=== PATIENT | male | born 1985 | race African-American/Black ===

== ENCOUNTER 2017-10-26 19:31 | Observation (INO) | payer OTHER ==
--- NOTE | 2017-10-26 19:45 | PDOC ---
History of Present Illness - General Chief Complaint: Blood Sugar Problem Stated Complaint: HYPERGLYCEMIA Time Seen by Provider: 10/26/17 19:44 History Source: Patient - History of Present Illness Initial Comments: 10/26/17 20:25 31-year-old male with history of insulin-dependent diabetes on insulin pump, hypothyroidism on Synthroid complaining of nausea vomiting this a.m. Patient reports that his last BGM was 260. History of DKA last admitted May 2017 at [facility]. patient denies Abdominal pain, fever/chills, URI symptoms, 10/26/17 20:25 Past History - Past Medical History Allergies/Adverse Reactions: Allergies Allergy/AdvReac Type Severity Reaction Status Date / Time No Known Allergies Allergy Verified 10/26/17 20:01 Home Medications: Ambulatory Orders Insulin Pump/Infus. Set/Meter [Accu-Chek Combo System] 1 each MC 10/26/17 Levothyroxine [Synthroid -] 37 mcg PO DAILY 10/26/17 Review of Systems - Review of Systems Able to Perform ROS?: Yes Is the patient limited Spanish proficient: No Constitutional: Yes: Weakness. No: Symptoms Reported, See HPI, Chills, Diaphoresis, Fever, Loss of Appetite, Malaise, Night Sweats, Weight Stable, Unintentional Wgt. Loss, Unexplained wgt Loss, Other ABD/GI: Yes: Nausea, Vomiting. No: Symptoms Reported, See HPI, Abdominal Distended, Abd. Pain w/ defecation, Blood Streaked Bowels, Constipated, Diarrhea , Difficulty Swallowing, Poor Appetite, Poor Fluid Intake, Rectal Bleeding, Indigestion, Abdominal cramping, Tarry Stools, Other : No: Symptoms Reported, See HPI, Burning, Dysuria, Discharge, Frequency, Flank Pain, Hematuria, Incontinence, Pain, Urgency, Testicular Mass, Testicular Swelling, Lesions, Testicular Pain, Other *Physical Exam - Vital Signs 10/26/17 20:27 Last Vital Signs Temp Pulse Resp BP Pulse Ox 98.8 F 102 H 19 155/94 98 10/26/17 19:56 10/26/17 19:56 10/26/17 19:56 10/26/17 19:56 10/26/17 19:56 - Physical Exam General Appearance: Yes: Mild Distress Respiratory/Chest: positive: Lungs Clear, Normal Breath Sounds Gastrointestinal/Abdominal: positive: Normal Bowel Sounds, Soft. negative: Tender Extremity: positive: Normal Capillary Refill, Normal Inspection, Normal Range of Motion Integumentary: positive: Dry, Other (dry lips) Neurologic: positive: Fully Oriented, Alert, Normal Mood/Affect ED Treatment Course - LABORATORY CBC & Chemistry Diagram: 10/26/17 19:59 10/27/17 00:40 Medical Decision Making - Medical Decision Making 10/26/17 20:29 patient tolerated PO food. no vomiting. 10/27/17 01:53 Patient vomited large amount on bilious vomitus. will obs for intractable vomiting. 10/27/17 02:34 patient signed out to Roxana SUTTON/ Dr. Quintana. patient to be placed on observation *DC/Admit/Observation/Transfer Diagnosis at time of Disposition: Hyperglycemia due to type 1 diabetes mellitus Intractable vomiting with nausea Qualifiers: Vomiting type: cyclical vomiting Qualified Code(s): G43.A1 - Cyclical vomiting , intractable - Discharge Dispostion Condition at time of disposition: Fair Decision to Admit order: Yes - Referrals - Patient Instructions - Post Discharge Activity
[2017-10-26] MEDS ORDERED: SODIUM CHLORIDE 1,000 ML IV STA ×2 (19:51→21:38)
[2017-10-26] MEDS ORDERED: ONDANSETRON 4 MG/2 ML VIAL IVPUSH ONE (19:53)
[2017-10-26 20:25] LABS: VENOUS PC02 46.3 mmHg (38-52); VENOUS PH 7.38 (7.32-7.42); VENOUS PO2 33.5 mmHg (28-48)
[2017-10-26 20:41] LABS: BASO % 0.4 % (0-2.0); HEMATOCRIT 41.1 % (35.4-49); HEMOGLOBIN 13.5 GM/dL (11.7-16.9); LYMPH % 8.8 % (8-40); MCH 27.3 pg (25.7-33.7); MCHC 32.7 g/dl (32.0-35.9); MEAN CELL VOLUME 83.5 fl (80-96); MEAN PLT VOLUME 8.3 fl (7.5-11.1); MONO % 2.3 % (3.8-10.2); NEUT % 88.5 % (42.8-82.8); PLATELET COUNT 249 K/MM3 (134-434); RBC 4.93 M/mm3 (4.00-5.60); RDW 13.5 % (11.9-15.9); WHITE BLOOD COUNT 5.1 K/mm3 (4.0-10.0)
[2017-10-26 20:43] LABS: INR 1.12 (0.82-1.09); PROTHROMBIN TIME (PATIENT) 12.6 SEC (9.7-13.0)
[2017-10-26 20:46] LABS: ACTIVATED PTT 33.4 SECONDS (26.9-34.4)
[2017-10-26 20:52] LABS: ALBUMIN 4.6 g/dl (3.4-5.0); ANION GAP 8 (8-16); BILIRUBIN,TOTAL 0.5 mg/dL (0.2-1.0); BLOOD UREA NITROGEN 15 mg/dL (7-18); CALCIUM 9.4 mg/dL (8.5-10.1); CHLORIDE 100 mmol/L (98-107); CO2 28 mmol/L (21-32); CREATININE 1.2 mg/dL (0.7-1.3); GLUCOSE,RANDOM 232 mg/dL (74-106); SGOT/AST 24 U/L (15-37); SGPT/ALT 28 U/L (12-78); SODIUM 136 mmol/L (136-145); TOT PROT 7.7 g/dl (6.4-8.2)
[2017-10-26 20:53] LABS: ALK PHOS 72 U/L (45-117)
[2017-10-26] MEDS: SODIUM CHLORIDE 1,000 ML IV SCH (21:28)
[2017-10-26 23:21] LABS: URINE APPEARANCE CLEAR; URINE BILIRUBIN NEGATIVE (<2.0 mg/dL); URINE BLOOD 2+ (NEGATIVE); URINE COLOR LTYELLOW; URINE GLUCOSE (UA) 3+ (NEGATIVE); URINE KETONE 2+ (NEGATIVE); URINE LEUK ESTERASE NEGATIVE (NEGATIVE); URINE NITRITE NEGATIVE (NEGATIVE); URINE UROBILINOGEN NEGATIVE mg/dL (0.2-1.0)
[2017-10-26 23:22] LABS: URINE PROTEIN 2+ (NEGATIVE)
[2017-10-26 23:23] LABS: URINE MUCUS RARE
[2017-10-27] MEDS ORDERED: METOCLOPRAMIDE HCL INJECTION 10 MG/2 ML VIAL ONE (01:39)
[2017-10-27] MEDS ORDERED: METOCLOPRAMIDE HCL INJECTION 10 MG/2 ML VIAL IVPB ONE (02:11)
--- NOTE | 2017-10-27 02:43 | HP ---
CHIEF COMPLAINT: Intractable vomiting PCP: Dr. Morales HISTORY OF PRESENT ILLNESS: 31 yo man with pmh of IDDM1, hypothroidism who presents with one day of persistent N/V and crampy abdominal pain. Pt states he was in his USOH until yesterday evening, when he noted progressive onset of crampy abdominal pain, with no radiation or exacerbating/relieving symptoms, nausea and 3 bouts of NBNB vomiting, yellow in color with no blood or food particles noted. Pt denies any other symptoms at the time. Pt states that symptoms continued today, with intermittent crampy abdominal pain and three more bouts of NBNB vomiting. Pt endorses no PO intake with decreased appetite and persistent nausea. Pt denies f /c, diarrhea, constipation, cough, CP, SOB, melena, hematochezia, rashes. He denies any sick contacts or dietary changes. Pt recently admitted for DKA last month at [facility], [place]. Pt follows with machine precision etcher and podiatry but does not know their names. Pt was started on insulin pump 2 years ago and endorses good compliance. ER course was notable for: (1)Reglan, Zofran x1 (2)BGM 298 (3)UA 3+ glucose, 2+ ketone, serum acetone + Recent Travel: None PAST MEDICAL HISTORY: IDDM Hypothyroidism PAST SURGICAL HISTORY: Thyroidectomy Social History: Smoking: Denies Alcohol: Denies Drugs: Denies marijuana, IVDU Family History: Non-contributory Allergies No Known Allergies Allergy (Verified 10/26/17 20:01) HOME MEDICATIONS: Home Medications Medication Instructions Recorded Insulin Pump/Infus. Set/Meter 1 each MC 10/26/17 [Accu-Chek Combo System] Levothyroxine [Synthroid -] 37 mcg PO DAILY 10/26/17 REVIEW OF SYSTEMS CONSTITUTIONAL: Absent: fever, chills, diaphoresis, generalized weakness, malaise, loss of appetite, weight change HEENT: Absent: rhinorrhea, nasal congestion, throat pain, throat swelling, difficulty swallowing, mouth swelling, ear pain, eye pain, visual changes CARDIOVASCULAR: Absent: chest pain, syncope, palpitations, irregular heart rate, lightheadedness , peripheral edema RESPIRATORY: Absent: cough, shortness of breath, dyspnea with exertion, orthopnea, wheezing, stridor, hemoptysis GASTROINTESTINAL: +abdominal pain, vomiting/nausea Absent: abdominal distension, diarrhea, constipation, melena, hematochezia GENITOURINARY: Absent: dysuria, frequency, urgency, hesitancy, hematuria, flank pain, genital pain MUSCULOSKELETAL: Absent: myalgia, arthralgia, joint swelling, back pain, neck pain SKIN: Absent: rash, itching, pallor HEMATOLOGIC/IMMUNOLOGIC: Absent: easy bleeding, easy bruising, lymphadenopathy, frequent infections ENDOCRINE: Absent: unexplained weight gain, unexplained weight loss, heat intolerance, cold intolerance NEUROLOGIC: Absent: headache, focal weakness or paresthesias, dizziness, unsteady gait, seizure, mental status changes, bladder or bowel incontinence PSYCHIATRIC: Absent: anxiety, depression, suicidal or homicidal ideation, hallucinations. PHYSICAL EXAMINATION Vital Signs - 24 hr 10/26/17 19:56 Temperature 98.8 F Pulse Rate 102 H Respiratory 19 Rate Blood Pressure 155/94 O2 Sat by Pulse 98 Oximetry (%) GENERAL: Young man, Awake, alert, and fully oriented, in no acute distress HEAD: Normal with no signs of trauma. EYES: Pupils equal, round and reactive to light, extraocular movements intact, sclera anicteric, conjunctiva clear. No lid lag. EARS, NOSE, THROAT: Ears normal, nares patent, oropharynx clear without exudates. Moist mucous membranes. NECK: Lateral midline throidectomy scar noted. Normal range of motion, supple without lymphadenopathy, JVD, or masses. LUNGS: Breath sounds equal, clear to auscultation bilaterally. No wheezes, and no crackles. No accessory muscle use. HEART: Tachy, 3/6 blowing systolic murmur best appreciated at LLSB. otherwise, Regular rate and rhythm, normal S1 and S2 , no rub or gallop. ABDOMEN: Soft, nontender, not distended, normoactive bowel sounds, no guarding, no rebound, no masses. No hepatomegaly or splenomegaly. MUSCULOSKELETAL: Normal range of motion at all joints. No bony deformities or tenderness. No CVA tenderness. UPPER EXTREMITIES: 2+ pulses, warm, well-perfused. No cyanosis. No clubbing. No peripheral edema. LOWER EXTREMITIES: 2+ pulses, warm, well-perfused. No calf tenderness. No peripheral edema. NEUROLOGICAL: Cranial nerves II-XII intact. Normal speech. Gait not evaluated. PSYCHIATRIC: Cooperative. Poor eye contact. Appropriate mood and affect. SKIN: Warm, dry, normal turgor, no rashes or lesions noted, normal capillary refill. Laboratory Results - last 24 hr CBC, BMP 10/26/17 19:59 10/27/17 00:40 10/26/17 10/26/17 10/26/17 19:59 19:59 19:59 WBC 5.1 RBC 4.93 Hgb 13.5 Hct 41.1 MCV 83.5 MCH 27.3 MCHC 32.7 RDW 13.5 Plt Count 249 MPV 8.3 Absolute Neuts (auto) 4.5 Neutrophils % 88.5 H Lymphocytes % 8.8 Monocytes % 2.3 L Eosinophils % 0.0 Basophils % 0.4 Nucleated RBC % 0 PT with INR 12.60 INR 1.12 PTT (Actin FS) 33.4 VBG pH POC VBG pCO2 POC VBG pO2 Mixed VBG HCO3 Sodium 136 Potassium 4.0 Chloride 100 Carbon Dioxide 28 Anion Gap 8 BUN 15 Creatinine 1.2 Creat Clearance w eGFR > 60 Random Glucose 232 H Calcium 9.4 Total Bilirubin 0.5 AST 24 ALT 28 Alkaline Phosphatase 72 Total Protein 7.7 Albumin 4.6 Urine Color Urine Appearance Urine pH Ur Specific Sturgeon Urine Protein Urine Glucose (UA) Urine Ketones Urine Blood Urine Nitrite Urine Bilirubin Urine Urobilinogen Ur Leukocyte Esterase Urine WBC (Auto) Urine RBC (Auto) Urine Mucus Acetone, Qual 10/26/17 10/26/17 10/26/17 19:59 19:59 23:07 WBC RBC Hgb Hct MCV MCH MCHC RDW Plt Count MPV Absolute Neuts (auto) Neutrophils % Lymphocytes % Monocytes % Eosinophils % Basophils % Nucleated RBC % PT with INR INR PTT (Actin FS) VBG pH 7.38 POC VBG pCO2 46.3 POC VBG pO2 33.5 Mixed VBG HCO3 27.0 H Sodium Potassium Chloride Carbon Dioxide Anion Gap BUN Creatinine Creat Clearance w eGFR Random Glucose Calcium Total Bilirubin AST ALT Alkaline Phosphatase Total Protein Albumin Urine Color Ltyellow Urine Appearance Clear Urine pH 6.0 Ur Specific Sturgeon 1.028 Urine Protein 2+ H Urine Glucose (UA) 3+ H Urine Ketones 2+ H Urine Blood 2+ H Urine Nitrite Negative Urine Bilirubin Negative Urine Urobilinogen Negative Ur Leukocyte Esterase Negative Urine WBC (Auto) 2 Urine RBC (Auto) 40 Urine Mucus Rare Acetone, Qual Positive,trace 06/05/18 00:40 WBC RBC Hgb Hct MCV MCH MCHC RDW Plt Count MPV Absolute Neuts (auto) Neutrophils % Lymphocytes % Monocytes % Eosinophils % Basophils % Nucleated RBC % PT with INR INR PTT (Actin FS) VBG pH POC VBG pCO2 POC VBG pO2 Mixed VBG HCO3 Sodium Potassium Chloride Carbon Dioxide Anion Gap BUN Creatinine Creat Clearance w eGFR Random Glucose 298 H D Calcium Total Bilirubin AST ALT Alkaline Phosphatase Total Protein Albumin Urine Color Urine Appearance Urine pH Ur Specific Sturgeon Urine Protein Urine Glucose (UA) Urine Ketones Urine Blood Urine Nitrite Urine Bilirubin Urine Urobilinogen Ur Leukocyte Esterase Urine WBC (Auto) Urine RBC (Auto) Urine Mucus Acetone, Qual No micro No EKG, CXR ASSESSMENT/PLAN: 31 yo man with pmh of IDDM1, hypothroidism who presents with one day of persistent N/V and crampy abdominal pain. Normal physical exam. Labs notable for elevated BGM 298, + serum acetone. UA with 3+ glucose, 2+ ketones, 2+ blood/ protein. #Intractable Vomiting - improved with reglan, zofran - Zofran 4mg IV PRN q6h - IVFs - advance diet as tolerated #IDDM1 - +serum acetone; +glucosuria, ketonuria; no evidence acidosis, normal A- gap - ISS -BGM q4h - Hgb A1c - F/u as outpt for further management with machine precision etcher #Proteinuria/hematuria - as above - Repeat UA in AM #Hypothyroidism - C/w home synthroid - TSH in AM PPX Famotidine FEN NS 150cc Daily lytes Diabetic diet as tolerated Plan discussed with Dr. Mariano Christian, PGY1 Hospitalist Screening - Colonoscopy Questionnaire Colonoscopy Questionnaire: Colonoscopy Questionnaire
[2017-10-27] MEDS ORDERED: ONDANSETRON 4 MG/2 ML VIAL IVPUSH PRN (03:07)
--- NOTE | 2017-10-27 04:52 | PN ---
Teaching Attending Note Name of Resident: Mayito Christian ATTENDING PHYSICIAN STATEMENT I saw and evaluated the patient. I reviewed the resident's note and discussed the case with the resident. I agree with the resident's findings and plan as documented. SUBJECTIVE: Patient is a 31 year old man with pmh of IDDM, thyroidectomy with hypothroidism who presents with one day of persistent nausea, vomiting and crampy abdominal pain. Yesterday he noted progressive onset of crampy abdominal pain, with no radiation or exacerbating/relieving symptoms, nausea and 3 bouts of vomiting - yellow material with no blood or food particles noted. No loose BM. He has had poor oral intake and was admitted for DKA last month at [facility]. Has been on insulin pump for 2 years but does not remember the name of his field services director or biometrician. OBJECTIVE: Somnolent but readily arousable. Vital Signs Period Temp Pulse Resp BP Sys/Archibald Pulse Ox Last 24 Hr 98.8 F 102-106 18-19 142-155/85-94 97-98 HEENT: No Jaundice, eye redness or discharge, PERRLA, EOMI. Normocephalic, atraumatic. External ears are normal and hearing is grossly intact. No nasal discharge. Neck: Supple, nontender. No palpable adenopathy or thyromegaly. No JVD Chest: Good effort. Clear to auscultation and percussion. Heart: Regular. No S3, rub or murmur Abdomen: Not distended, soft, nontender and no HSM. No rebound or guarding. Normoactive bowel sounds. Ext: Peripheral pulses intact. No leg edema. Skin: Warm and dry. No petechiae, rash or ecchymosis. Neuro: Alert. Oriented x3. CN 2-12 grossly intact. Sensation grossly intact in all four extremities and DTR are symmetric. Current Medications Generic Name Dose Route Start Last Admin Trade Name Freq PRN Reason Stop Dose Admin Sodium Chloride 1,000 mls @ 150 mls/hr 10/26/17 21:00 10/26/17 21:28 Normal Saline - IV 150 mls/hr ASDIR ILIANA Administration Insulin Aspart 1 vial 10/27/17 07:00 Novolog Vial Sliding Scale - SQ ACHS ILIANA Protocol Ondansetron HCl 4 mg 10/27/17 03:07 Zofran Injection IVPUSH Q6H PRN NAUSEA Home Medications Medication Instructions Recorded Insulin Pump/Infus. Set/Meter 1 each MC 10/26/17 [Accu-Chek Combo System] Levothyroxine [Synthroid -] 37 mcg PO DAILY 10/26/17 Abnormal Lab Results 10/26/17 10/26/17 10/26/17 19:59 19:59 19:59 Neutrophils % 88.5 H Monocytes % 2.3 L Mixed VBG HCO3 27.0 H Random Glucose 232 H Urine Protein Urine Glucose (UA) Urine Ketones Urine Blood 10/26/17 10/27/17 23:07 00:40 Neutrophils % Monocytes % Mixed VBG HCO3 Random Glucose 298 H D Urine Protein 2+ H Urine Glucose (UA) 3+ H Urine Ketones 2+ H Urine Blood 2+ H ASSESSMENT AND PLAN: 1. Intractable nausea and vomiting - Improved in the ER after Zofran and IV fluids. Diabetic gastropathy is the likely culprit, but will get urine toxicology for drug screen. Ciontinue IV NS and zofran PRN. Consult GI. 2. Uncontrolled DM - Continue sliding scale insulin and check his insulin pump to ensure that it is working well. No evidence of DKA or associated infection. Needs comprehensive DM patient education - he is on insulin pump - the fact that he does not know the name of his field services director is concerning. Stress eye care and foot care. Consult field services director. Proteinuria and hematuria may signal early diabetic nephropathy - needs further nephrologic work up and repeat urinalysis. Consult nephrology. His BP is suboptimal - moreso for a diabetic patient. Begin and an angiotensin receptor janeth if hypertension persists. 3. Hypothyroidism - Follow up TFT and continue synthroid. 4. DVT prophylaxis - Heparin 5000u sq tid and early ambulation. 5. Advance directives - Full code
[2017-10-27] MEDS ORDERED: INSULIN (NOVOLOG) ASPART 100 UNITS/ML 10ML VIAL SQ ONE (06:24)
[2017-10-27] MEDS ORDERED: FAMOTIDINE 20 MG/50 ML IVPB 20 MG/50 ML MG IVPB ONE (06:24)
[2017-10-27] MEDS: INSULIN SLIDING SCALE (NOVOLOG) 1 VIAL SQ SCH ×2 (06:40→11:59)
[2017-10-27] MEDS ORDERED: PT OWN MED DRAWER 7, Y5N ONE (07:18)
[2017-10-27] MEDS: SODIUM CHLORIDE 1,000 ML IV SCH (07:41)
[2017-10-27 08:00] VITALS: BMI 21.7
[2017-10-27 09:17] LABS: ANION GAP 12 (8-16); BLOOD UREA NITROGEN 21 mg/dL (7-18); CALCIUM 8.2 mg/dL (8.5-10.1); CHLORIDE 104 mmol/L (98-107); CO2 23 mmol/L (21-32); CREATININE 1.5 mg/dL (0.7-1.3); GLUCOSE,RANDOM 293 mg/dL (74-106); POTASSIUM 3.7 mmol/L (3.5-5.1); SODIUM 139 mmol/L (136-145)
[2017-10-27 09:58] LABS: MAGNESIUM 1.6 mg/dL (1.8-2.4); PHOSPHOROUS 2.8 mg/dL (2.5-4.9)
[2017-10-27] MEDS ORDERED: INSULIN (LEVEMIR) 100 UNITS/ML UNITS SQ ONE ×2 (11:07)
[2017-10-27] MEDS ORDERED: MAGNESIUM OXIDE 400 MG TABLET (FP) PO ONE (11:08)
--- NOTE | 2017-10-27 11:36 | CON.GI ---
Consult Consult Specialty:: GI: Dr. Mcguire for Dr. De La Garza Referred by:: Hospitalist Service Reason for Consultation:: Nausea, vomiting - History of Present Illness Chief Complaint: Nausea and vomiting History of Present Illness: 31M admitted through [facility] ER for evaluation of nausea and vomiting. He states that he was in his usual state of health up until yesterday when symptoms began. He denied associated abdominal pain, fevers/chills, diarrhea, recent change in diet, sick contacts with similar complaints, rectal bleeding, melena and overall feels better today. He had 1 alcoholic beverage on Thursday and denies frequent alcohol consumption. He was noted hyperglycemic on admission with blood glucose 232--->298. He states that his blood sugar has been around 300 of late and has been seeing his corrugated fastener driver to attain better control. he also admits to not being adherent to a diabetic diet as much as he should. He has tolerated full liquids today. He has an appointment this month with his market sales manager Dr. Gaurav Hollis on [facility] and states having seen him earlier in the year as well. - History Source History Provided By: Patient, Medical Record Limitations to Obtaining History: No Limitations - Past Medical History Endocrine: Yes: Diabetes Mellitus (DM I since age 10), Hyperthyroidism (s/p thyroidectomy, now with surgical hypothyroidism) - Past Surgical History Additional Surgical History: Thyroidectomy, insulin pump placement - Alcohol/Substance Use Hx Alcohol Use: Yes (described as occasional, last 6/3: 1 drink) History of Substance Use: reports: None - Smoking History Smoking history: Never smoked Have you smoked in the past 12 months: No - Social History Usual Living Arrangement: Alone ADL: Independent Occupation: Works at [employer] in [facility] Place of : [facility] History of Recent Travel: No Home Medications - Allergies Allergies/Adverse Reactions: Allergies Allergy/AdvReac Type Severity Reaction Status Date / Time No Known Allergies Allergy Verified 10/26/17 20:01 - Home Medications Home Medications: Ambulatory Orders Insulin Pump/Infus. Set/Meter [Accu-Chek Combo System] 1 each ACHS 10/26/17 Levothyroxine [Synthroid -] 37 mcg PO DAILY 10/26/17 Family Disease History - Family Disease History Family Disease History: Other: Father (Alive: healthy), Mother (Alive: healthy) , Brother (1, healthy), Sister (2, healthy), Son (none), Daughter (1, healthy) Other Family History: No family history of colorectal cancer or other GI malignancy Review of Systems - Review of Systems Constitutional: denies: Chills, Fever, Unintentional Wgt. Loss Cardiovascular: denies: Chest Pain Respiratory: denies: Cough, SOB Gastrointestinal: reports: Nausea, Vomiting. denies: Abdominal Pain, Bloating, Constipation, Diarrhea, Melena, Rectal Bleeding, Vomiting Blood Physical Exam-GI Vital Signs: Vital Signs Temperature 98.6 F 10/27/17 08:00 Pulse Rate 98 H 10/27/17 08:00 Respiratory Rate 18 10/27/17 08:00 Blood Pressure 143/74 10/27/17 08:00 O2 Sat by Pulse Oximetry (%) 97 10/27/17 05:35 Constitutional: Yes: Calm Eyes: No: Sclera Icterus Cardiovascular: Yes: Regular Rate and Rhythm. No: Murmur Respiratory: Yes: CTA Bilaterally Gastrointestinal Inspection: Yes: Other (Insulin pump in place in mid abdomen) ...Auscultate: Yes: Normoactive Bowel Sounds ...Palpate: No: Hepatomegaly, Splenomegaly, Tenderness ...Percussion: No: Tympanitic Edema: No (No LE edema) Neurological: Yes: Alert, Oriented Labs: CBC, BMP 10/26/17 19:59 10/27/17 08:19 INR, PTT INR 1.12 (0.82-1.09) 10/26/17 19:59 Hepatic Panel Total Bilirubin 0.5 mg/dL (0.2-1.0) 10/26/17 19:59 AST 24 U/L (15-37) 10/26/17 19:59 ALT 28 U/L (12-78) 10/26/17 19:59 Alkaline Phosphatase 72 U/L (45-117) 10/26/17 19:59 Albumin 4.6 g/dl (3.4-5.0) 10/26/17 19:59 Laboratory Tests 10/27/17 08:19 TSH 0.75 Problem List - Problems (1) Nausea & vomiting Assessment/Plan: Suspect secondary to hyperglycemia Tolerating full liquids currently Advise: IV hydration Glycemic control. Explained to Mr. Chen that blood glucose over 250 can lead to GI derangements of the intestinal tract such as diabetic gastroparesis Protonix 40mg once daily for 5 days Replete lytes Would change zofran to prn regalan. Would avoid as a assisted treatment. If symptoms persist, would consider EGD, otherwise he can follow-up with his market sales manager Dr. Gaurav Hollis when acute issues are resolved Code(s): R11.2 - NAUSEA WITH VOMITING, UNSPECIFIED
[2017-10-27] MEDS ORDERED: METOCLOPRAMIDE HCL INJECTION 10 MG/2 ML VIAL IVPB PRN (11:48)
--- NOTE | 2017-10-27 12:29 | CONSULT ---
Consult Consult Specialty:: Endocrinology Referred by:: Gamaliel Alarcon MD Reason for Consultation:: Hyperglycemia - History of Present Illness Chief Complaint: Nausea History of Present Illness: This is a 31 yo man h/o T1DM for last 21 years, hypothroidism who presented with one day of persistent N/V and crampy abdominal pain. Pt states he was in his USOH until yesterday evening, when he noted progressive onset of crampy abdominal pain, with no radiation or exacerbating/relieving symptoms, nausea and 3 bouts of NBNB vomiting, yellow in color with no blood or food particles noted. Pt denies any other symptoms at the time. Pt denies any diarrhea, constipation, Pt recently admitted for DKA last month at [facility], [place]. Denies any hospitalization for hypoglycemia. Pt follows with staff sonographer and podiatry but does not know their names. Pt was started on insulin pump 2 years ago and endorses good compliance. Admission blood sugar was 298. FS at home 150 to 200 and last A1c 8.7 as per pt. Denies any visual symptoms. No paresthesia. Saw Ophthalmology last in August. Pt currently off Insulin pump. Pump setting reviewed: Basal rate: 12 MN 1.1 3 AM 1.15 8AM 1.25 Carb Ratio 1:10, and Sensitivity 1:40 - History Source History Provided By: Patient, Medical Record - Past Medical History Endocrine: Yes: Diabetes Mellitus (DM I since age 10), Hyperthyroidism (s/p thyroidectomy, now with surgical hypothyroidism) - Past Surgical History Additional Surgical History: Thyroidectomy, insulin pump placement - Alcohol/Substance Use Hx Alcohol Use: Yes (described as occasional, last 6/3: 1 drink) History of Substance Use: reports: None - Smoking History Smoking history: Never smoked Have you smoked in the past 12 months: No - Social History Usual Living Arrangement: Alone ADL: Independent Occupation: Works at [employer] in [facility] History of Recent Travel: No Home Medications - Allergies Allergies/Adverse Reactions: Allergies Allergy/AdvReac Type Severity Reaction Status Date / Time No Known Allergies Allergy Verified 10/26/17 20:01 - Home Medications Home Medications: Ambulatory Orders Insulin Pump/Infus. Set/Meter [Accu-Chek Combo System] 1 each ACHS 10/26/17 Levothyroxine [Synthroid -] 37 mcg PO DAILY 10/26/17 Family Disease History - Family Disease History Family Disease History: Diabetes: Grandparent, Other: Father (Alive: healthy), Mother (Alive: healthy), Brother (1, healthy), Sister (2, healthy), Son (none), Daughter (1, healthy) Other Family History: No family history of colorectal cancer or other GI malignancy Review of Systems - Review of Systems Constitutional: reports: No Symptoms Eyes: reports: No Symptoms HENT: reports: No Symptoms Neck: reports: No Symptoms Cardiovascular: reports: No Symptoms Respiratory: reports: No Symptoms Gastrointestinal: reports: Nausea Genitourinary: reports: No Symptoms Musculoskeletal: reports: No Symptoms Integumentary: reports: No Symptoms Neurological: reports: No Symptoms Endocrine: reports: No Symptoms Hematology/Lymphatic: reports: No Symptoms Physical Exam Vital Signs: Vital Signs Temperature 98.5 F 10/27/17 12:00 Pulse Rate 102 H 10/27/17 12:00 Respiratory Rate 18 10/27/17 12:00 Blood Pressure 150/78 10/27/17 12:00 O2 Sat by Pulse Oximetry (%) 97 10/27/17 05:35 Constitutional: Yes: No Distress, Calm Eyes: Yes: Conjunctiva Clear, EOM Intact HENT: Yes: Atraumatic, Normocephalic Neck: Yes: Supple, Trachea Midline Cardiovascular: Yes: Regular Rate and Rhythm Respiratory: Yes: Regular, CTA Bilaterally Gastrointestinal: Yes: Normal Bowel Sounds, Soft Musculoskeletal: Yes: WNL Extremities: Yes: WNL Edema: No Neurological: Yes: Alert, Oriented Labs: CBC, BMP 10/26/17 19:59 10/27/17 08:19 Problem List - Problems (1) Hyperglycemia due to type 1 diabetes mellitus Code(s): E10.65 - TYPE 1 DIABETES MELLITUS WITH HYPERGLYCEMIA (2) Nausea & vomiting Code(s): R11.2 - NAUSEA WITH VOMITING, UNSPECIFIED Assessment/Plan AP: T1DM with Hyperglycemia Nausea, vomiting Hypothyroidism Pump setting reviewed: Basal rate: 12 MN 1.1, 3 AM 1.15, 8AM 1.25, Carb Ratio 1:10, and Sensitivity 1:40 Levemir 15 units daily Novolog SS coverage IV hydration Monitor lytes and renal function Replace lytes as necessary Will F/u
[2017-10-27 15:10] VITALS: BP 155/81; PULSE 93; TEMP 98.7
[2017-10-27] MEDS ORDERED: SODIUM CHLORIDE 500 ML IV STA (16:19)
[2017-10-27] MEDS ORDERED: INSULIN SLIDING SCALE (NOVOLOG) 1 VIAL SQ SCH (16:30)
--- NOTE | 2017-10-27 17:15 | PN ---
Teaching Attending Note Name of Resident: Gamaliel Alarcon ATTENDING PHYSICIAN STATEMENT I saw and evaluated the patient. I reviewed the resident's note and discussed the case with the resident. I agree with the resident's findings and plan as documented. SUBJECTIVE: No fever or chills. No abd pain , no N/V , feels back to base line . pt does not know his insulin pump settings and does not think he is on a basal rate OBJECTIVE: NAD CV: RRR, 3/6 SM at apex . Lungs: CTAB Abd: sfot, NT, ND , Nl BS Ext: no edema ASSESSMENT AND PLAN: 31 y/o man with h/o DM I, hyper thyroidism, s/p thyroidectomy and now hypothyroidism, who presented with N/v. 1-N/V: after eating. ? gastroparesis vs viral gastritis . resolved now . tolerated diet - f/u as out pt for possible gastric emptying study 2- SUDHA: likely form volume depletion due to vomiting - IVF to recheck his Cr 3- DM I : not in DKA. ora repeat BMP as his Bicarb dropped and his AG is 12. his bicarb is still 23 indicating no DKA despite ketones in urine. - gave stat dose of levemir in Am as pump is off - cont SSI - when he goes home, he will resume his pump at same settings 4- replete Mg dc home when cr normalizes . later today or tomorrow
[2017-10-27] MEDS ORDERED: PANTOPRAZOLE 40 MG TABLET (FP) PO SCH (18:00)
[2017-10-27 18:15] LABS: ANION GAP 7 (8-16); BLOOD UREA NITROGEN 18 mg/dL (7-18); CALCIUM 8.1 mg/dL (8.5-10.1); CHLORIDE 102 mmol/L (98-107); CO2 26 mmol/L (21-32); CREATININE 1.3 mg/dL (0.7-1.3); GLUCOSE,RANDOM 260 mg/dL (74-106); POTASSIUM 3.7 mmol/L (3.5-5.1); SODIUM 135 mmol/L (136-145)
--- NOTE | 2017-10-27 18:46 | DS ---
Physical Exam: SUBJECTIVE: Pt denies any complaints at this time. Pt did not have any further vomiting and is tolerating his breakfast this morning w/o nausea or vomiting. He reports he remembers his fur stylist's name, Dr. Braden, which he has an appointment in 2 days coming up. OBJECTIVE: Vital Signs Period Temp Pulse Resp BP Sys/Archibald Pulse Ox Last 24 Hr 98.4 F-98.8 F 93-106 18-19 124-155/57-94 97-100 PHYSICAL EXAM GENERAL: The patient is awake, alert, and fully oriented, in no acute distress. HEENT: EOMI, LEA, no JVD, moist mucosa LUNGS:CTA bilaterally, no wheezes, no crackles, no accessory muscle use. HEART: RRR, S1, S2 with 3/6 systolic murmur heard best at the [facility] and [place] ABDOMEN: Soft, NT/ND, normoactive bowel sounds, no guarding, port of insulin pump intact without insulin pump connected. EXTREMITIES: 2+ DP pulses, no edema. PSYCH: Normal mood, normal affect. SKIN: Warm, dry, no rashes or lesions noted. LABS Laboratory Results - last 24 hr 10/26/17 10/26/17 10/26/17 19:59 19:59 19:59 WBC 5.1 RBC 4.93 Hgb 13.5 Hct 41.1 MCV 83.5 MCH 27.3 MCHC 32.7 RDW 13.5 Plt Count 249 MPV 8.3 Absolute Neuts (auto) 4.5 Neutrophils % 88.5 H Lymphocytes % 8.8 Monocytes % 2.3 L Eosinophils % 0.0 Basophils % 0.4 Nucleated RBC % 0 PT with INR 12.60 INR 1.12 PTT (Actin FS) 33.4 VBG pH POC VBG pCO2 POC VBG pO2 Mixed VBG HCO3 Sodium 136 Potassium 4.0 Chloride 100 Carbon Dioxide 28 Anion Gap 8 BUN 15 Creatinine 1.2 Creat Clearance w eGFR > 60 POC Glucometer Random Glucose 232 H Hemoglobin A1c % Calcium 9.4 Phosphorus Magnesium Total Bilirubin 0.5 AST 24 ALT 28 Alkaline Phosphatase 72 Total Protein 7.7 Albumin 4.6 TSH Urine Color Urine Appearance Urine pH Ur Specific Procious Urine Protein Urine Glucose (UA) Urine Ketones Urine Blood Urine Nitrite Urine Bilirubin Urine Urobilinogen Ur Leukocyte Esterase Urine WBC (Auto) Urine RBC (Auto) Urine Mucus Acetone, Qual 10/26/17 10/26/17 10/26/17 19:59 19:59 23:07 WBC RBC Hgb Hct MCV MCH MCHC RDW Plt Count MPV Absolute Neuts (auto) Neutrophils % Lymphocytes % Monocytes % Eosinophils % Basophils % Nucleated RBC % PT with INR INR PTT (Actin FS) VBG pH 7.38 POC VBG pCO2 46.3 POC VBG pO2 33.5 Mixed VBG HCO3 27.0 H Sodium Potassium Chloride Carbon Dioxide Anion Gap BUN Creatinine Creat Clearance w eGFR POC Glucometer Random Glucose Hemoglobin A1c % Calcium Phosphorus Magnesium Total Bilirubin AST ALT Alkaline Phosphatase Total Protein Albumin TSH Urine Color Ltyellow Urine Appearance Clear Urine pH 6.0 Ur Specific Procious 1.028 Urine Protein 2+ H Urine Glucose (UA) 3+ H Urine Ketones 2+ H Urine Blood 2+ H Urine Nitrite Negative Urine Bilirubin Negative Urine Urobilinogen Negative Ur Leukocyte Esterase Negative Urine WBC (Auto) 2 Urine RBC (Auto) 40 Urine Mucus Rare Acetone, Qual Positive,trace 10/27/17 10/27/17 10/27/17 00:40 06:22 08:19 WBC RBC Hgb Hct MCV MCH MCHC RDW Plt Count MPV Absolute Neuts (auto) Neutrophils % Lymphocytes % Monocytes % Eosinophils % Basophils % Nucleated RBC % PT with INR INR PTT (Actin FS) VBG pH POC VBG pCO2 POC VBG pO2 Mixed VBG HCO3 Sodium Potassium Chloride Carbon Dioxide Anion Gap BUN Creatinine Creat Clearance w eGFR POC Glucometer 312 Random Glucose 298 H D Hemoglobin A1c % Calcium Phosphorus Cancelled Magnesium Cancelled Total Bilirubin AST ALT Alkaline Phosphatase Total Protein Albumin TSH Cancelled Urine Color Urine Appearance Urine pH Ur Specific Procious Urine Protein Urine Glucose (UA) Urine Ketones Urine Blood Urine Nitrite Urine Bilirubin Urine Urobilinogen Ur Leukocyte Esterase Urine WBC (Auto) Urine RBC (Auto) Urine Mucus Acetone, Qual 10/27/17 10/27/17 10/27/17 08:19 08:19 11:01 WBC RBC Hgb Hct MCV MCH MCHC RDW Plt Count MPV Absolute Neuts (auto) Neutrophils % Lymphocytes % Monocytes % Eosinophils % Basophils % Nucleated RBC % PT with INR INR PTT (Actin FS) VBG pH POC VBG pCO2 POC VBG pO2 Mixed VBG HCO3 Sodium 139 Potassium 3.7 Chloride 104 Carbon Dioxide 23 Anion Gap 12 BUN 21 H D Creatinine 1.5 H D Creat Clearance w eGFR POC Glucometer 358 Random Glucose 293 H Hemoglobin A1c % 8.2 H Calcium 8.2 L Phosphorus 2.8 Magnesium 1.6 L Total Bilirubin AST ALT Alkaline Phosphatase Total Protein Albumin TSH 0.75 Urine Color Urine Appearance Urine pH Ur Specific Procious Urine Protein Urine Glucose (UA) Urine Ketones Urine Blood Urine Nitrite Urine Bilirubin Urine Urobilinogen Ur Leukocyte Esterase Urine WBC (Auto) Urine RBC (Auto) Urine Mucus Acetone, Qual 10/27/17 10/27/17 16:05 17:00 WBC RBC Hgb Hct MCV MCH MCHC RDW Plt Count MPV Absolute Neuts (auto) Neutrophils % Lymphocytes % Monocytes % Eosinophils % Basophils % Nucleated RBC % PT with INR INR PTT (Actin FS) VBG pH POC VBG pCO2 POC VBG pO2 Mixed VBG HCO3 Sodium 135 L Potassium 3.7 Chloride 102 Carbon Dioxide 26 Anion Gap 7 L BUN 18 Creatinine 1.3 Creat Clearance w eGFR POC Glucometer 221 Random Glucose 260 H Hemoglobin A1c % Calcium 8.1 L Phosphorus Magnesium Total Bilirubin AST ALT Alkaline Phosphatase Total Protein Albumin TSH Urine Color Urine Appearance Urine pH Ur Specific Procious Urine Protein Urine Glucose (UA) Urine Ketones Urine Blood Urine Nitrite Urine Bilirubin Urine Urobilinogen Ur Leukocyte Esterase Urine WBC (Auto) Urine RBC (Auto) Urine Mucus Acetone, Qual HOSPITAL COURSE: Date of Admission:10/27/17 Date of Discharge: 10/27/17 Pt was admitted on 10/27/17 due to intractable nausea and vomiting for which he received Zofran 4mg and Reglan 10mg once each in the ED. Pt was continued on Zofran for coverage and was initiated on NS@150cc/hr. Overnight he did not have any more episodes of vomiting or nausea and was able to tolerate his breakfast. Unfortunately, pt was also found to have high glucose level of 300-350's so his insulin pump was disconnected and he was covered with Levemir 15U HS and ISS. Pt was seen by an fur stylist and was cleared for discharge with follow-up with the pt's outpatient fur stylist. Pt was instructed to keep his insulin pump disconnected until 8am 10/28/17 due to the Levemir dose he received and was asked to record his blood glucose levels for the next few days so he can show the log to his fur stylist. Currently he is being discharged in stable condition and understands his discharge instructions. Minutes to complete discharge: 35 Discharge Summary Reason For Visit: TYPE 1 DIABETES MELLITUS W/HYPERGLYCEMIA Current Active Problems Acute renal failure (Acute) Hyperglycemia due to type 1 diabetes mellitus (Acute) Intractable vomiting with nausea (Acute) Hypothyroid (Chronic) Condition: Improved - Instructions Diet, Activity, Other Instructions: You were seen here for your nausea and vomiting. This resolved with some medication and hydration. Most likely you developed some viral gastroenteritis causing you to feel sick. MEDICATIONS: Please do not use your pump until 8am tomorrow morning because you received some insulin while in the hospital 8am tomorrow morning please reconnect your pump and continue to use it as you have been. Please remember to stay hydrated and avoid both sugary foods and carbohydrates like bread Monitor your blood sugar before meals and make a log to present to Dr. Braden so he can adjust the pump settings if needed Continue to take your thyroid medication as you have been. FOLLOW-UP: Please follow-up with your fur stylist, Dr. Braden, either tomorrow or with your appointment on 10/29/2017 Please follow-up with your primary medical provider as well. If you develop nausea, vomiting, pain abdomen or your blood sugar is high contact your doctor or go to hospital. Referrals: Gaurav Hollis [Non Staff, Medical] - 2 Weeks Disposition: HOME - Home Medications Comprehensive Discharge Medication List: Ambulatory Orders Insulin Pump/Infus. Set/Meter [Accu-Chek Combo System] 1 each ACHS 10/26/17 Levothyroxine [Synthroid -] 37 mcg PO DAILY 10/26/17 This patient is new to me today: No Emergency Visit: No Critical Care patient: No - Discharge Referral Referred to [facility] Med [facility].C[facility] No
[2017-10-27] MEDS ORDERED: Insulin (LOG) Aspart 100 UNITS/ML VIAL SQ SCH (22:00)
[2017-10-28] MEDS ORDERED: INSULIN (LEVEMIR) 100 UNITS/ML UNITS SQ SCH (07:00)
== END 2017-10-27 19:15 | disposition home or self-care (01) ==
LOC: JER 19:31 → JERBED 10-27 01:59 → J5S 10-27 04:51
PROVIDERS: ADMIT Internal Medicine; ATTEND Internal Medicine
PROC: 3E033GC Introduction of Other Therapeutic Substance into Peripheral Vein, Percutaneous Approach (ICD-10-PCS; principal; 2017-10-27)
PROC: 3E0337Z Introduction of Electrolytic and Water Balance Substance into Peripheral Vein, Percutaneous Approach (ICD-10-PCS; 2017-10-27)
PROC: 3E013VG Introduction of Insulin into Subcutaneous Tissue, Percutaneous Approach (ICD-10-PCS; 2017-10-27)
DX: E10.65 Type 1 diabetes mellitus with hyperglycemia (principal); Z96.41 Presence of insulin pump (external) (internal); G43.A1 Cyclical vomiting, in migraine, intractable; E03.9 Hypothyroidism, unspecified; R80.9 Proteinuria, unspecified; R31.9 Hematuria, unspecified; N17.9 Acute kidney failure, unspecified
CPT/HCPCS: 36415; 80048; 80053; 81003; 81015; 82009; 82803; 82947; 82962; 83036; 83735; 84100; 84443; 85025; 85610; 85730; 96361; 96365; 96372; 96375; 96376; 99285-25; G0378; J7030

== ENCOUNTER 2020-11-24 13:13 | Emergency (ER) | payer OTHER ==
[2020-11-24 13:26] VITALS: BP 116/77; PULSE 104; TEMP 98.5; BMI 23.0
[2020-11-24] MEDS ORDERED: SODIUM CHLORIDE 0.9% 500 ML INFUS.BAG IV ONE (13:55)
[2020-11-24] MEDS ORDERED: METOCLOPRAMIDE HCL INJECTION 10 MG/2 ML VIAL IVPUSH ONE (13:55)
[2020-11-24] MEDS ORDERED: Insulin (LOG) Aspart 100 UNITS/ML VIAL SQ ONE (14:00)
[2020-11-24] MEDS ORDERED: METOCLOPRAMIDE HCL INJECTION 10 MG/2 ML VIAL ONE (14:10)
[2020-11-24 14:33] LABS: BASO % 0.6 % (0-2.0); EOS % 0.1 % (0-4.5); HEMATOCRIT 49.8 % (35.4-49); HEMOGLOBIN 16.2 GM/dL (11.7-16.9); LYMPH % 15.6 % (8-40); MCH 27.1 pg (25.7-33.7); MCHC 32.5 g/dl (32.0-35.9); MEAN CELL VOLUME 83.5 fl (80-96); MEAN PLT VOLUME 8.7 fl (7.5-11.1); MONO % 5.2 % (3.8-10.2); NEUT % 78.5 % (42.8-82.8); PLATELET COUNT 280 10^3/uL (134-434); RBC 5.97 M/mm3 (4.00-5.60); WHITE BLOOD COUNT 10.7 K/mm3 (4.0-10.0)
[2020-11-24 14:52] LABS: ALBUMIN 4.2 g/dl (3.4-5.0); CALCIUM 9.5 mg/dL (8.5-10.1)
[2020-11-24 14:53] LABS: BLOOD UREA NITROGEN 21.9 mg/dL (7-18); MAGNESIUM 2.4 mg/dL (1.8-2.4)
[2020-11-24 14:56] LABS: CREATININE 1.3 mg/dL (0.55-1.3); PHOSPHOROUS 4.2 mg/dL (2.5-4.9)
[2020-11-24 14:57] LABS: BILIRUBIN,TOTAL 0.9 mg/dL (0.2-1)
[2020-11-24 16:40] LABS: CHLORIDE 98 mmol/L (98-107); SODIUM 132 mmol/L (136-145)
[2020-11-24 16:41] LABS: CALCIUM 8.3 mg/dL (8.5-10.1)
[2020-11-24 16:42] LABS: CO2 25 mmol/L (21-32); GLUCOSE,RANDOM 289 mg/dL (74-106)
[2020-11-24 16:45] LABS: CREATININE 1.3 mg/dL (0.55-1.3)
[2020-11-24 17:01] LABS: ANION GAP 9 MMOL/L (8-16)
[2020-11-24] MEDS ORDERED: LACTATED RINGERS SOLUTION 1000 ML INFUS.BAG IV ONE (18:00)
[2020-11-24 19:46] LABS: CALCIUM 8.6 mg/dL (8.5-10.1)
[2020-11-24 19:47] LABS: BLOOD UREA NITROGEN 19.9 mg/dL (7-18)
[2020-11-24 19:50] LABS: CREATININE 1.2 mg/dL (0.55-1.3)
[2020-11-24 21:39] LABS: BLOOD UREA NITROGEN 18.8 mg/dL (7-18); CALCIUM 8.3 mg/dL (8.5-10.1)
[2020-11-25] MEDS ORDERED: Insulin (LOG) Aspart 100 UNITS/ML VIAL SQ SCH (07:00)
[2020-11-25] MEDS ORDERED: Insulin (LOG) Aspart 100 UNITS/ML VIAL SQ ONE (21:22)
== END 2020-11-24 22:37 | disposition home or self-care (01) ==
LOC: JER 13:13
PROC: 3E033GC Introduction of Other Therapeutic Substance into Peripheral Vein, Percutaneous Approach (ICD-10-PCS; principal; 2020-11-24)
PROC: 3E033GC Introduction of Other Therapeutic Substance into Peripheral Vein, Percutaneous Approach (ICD-10-PCS; 2020-11-24)
DX: E10.65 Type 1 diabetes mellitus with hyperglycemia (principal)
CPT/HCPCS: 36415; 80048; 80053; 82962; 83735; 84100; 85025; 99284-25; C9803; U0003; U0005

== ENCOUNTER 2021-01-15 22:40 | Emergency (ER) | payer OTHER ==
[2021-01-15 23:11] VITALS: BMI 26.3
[2021-01-15] MEDS ORDERED: SODIUM CHLORIDE 1,000 ML IV STA (23:28)
[2021-01-15] MEDS ORDERED: METOCLOPRAMIDE HCL INJECTION 10 MG/2 ML VIAL IVPUSH ONE (23:35)
[2021-01-16] MEDS ORDERED: METOCLOPRAMIDE HCL INJECTION 10 MG/2 ML VIAL ONE (00:09)
[2021-01-16 00:57] LABS: BASO % 0.3 % (0-2.0); HEMATOCRIT 40.2 % (35.4-49); HEMOGLOBIN 13.2 GM/dL (11.7-16.9); LYMPH % 7.8 % (8-40); MCH 26.9 pg (25.7-33.7); MCHC 32.9 g/dl (32.0-35.9); MEAN CELL VOLUME 81.7 fl (80-96); MONO % 5.4 % (3.8-10.2); NEUT % 86.5 % (42.8-82.8); PLATELET COUNT 216 10^3/uL (134-434); RBC 4.91 M/mm3 (4.00-5.60); RDW 14.8 % (11.9-15.9); WHITE BLOOD COUNT 7.6 K/mm3 (4.0-10.0)
[2021-01-16 01:27] LABS: ALBUMIN 4.2 g/dl (3.4-5.0); BLOOD UREA NITROGEN 15.8 mg/dL (7-18); CALCIUM 9.5 mg/dL (8.5-10.1)
[2021-01-16 01:30] LABS: CREATININE 1.3 mg/dL (0.55-1.3)
[2021-01-16 01:32] LABS: BILIRUBIN,TOTAL 0.4 mg/dL (0.2-1); TOT PROT 7.7 g/dl (6.4-8.2)
[2021-01-16 02:31] VITALS: BP 130/76; PULSE 86; TEMP 98.1
== END 2021-01-16 02:31 | disposition home or self-care (01) ==
LOC: JER 22:40
PROC: 3E033GC Introduction of Other Therapeutic Substance into Peripheral Vein, Percutaneous Approach (ICD-10-PCS; principal; 2021-01-15)
DX: E13.43 Other specified diabetes mellitus with diabetic autonomic (poly)neuropathy (principal)
CPT/HCPCS: 36415; 80053; 82962; 83690; 85025; 99284-25

== ENCOUNTER 2021-01-16 20:02 | Emergency (ER) | payer OTHER ==
[2021-01-16 20:36] VITALS: BMI 23.0
[2021-01-16] MEDS ORDERED: ONDANSETRON 4 MG/2 ML VIAL IVPUSH ONE (21:14)
[2021-01-16] MEDS ORDERED: SODIUM CHLORIDE 0.9% 500 ML INFUS.BAG IV ONE (21:15)
[2021-01-16] MEDS ORDERED: ONDANSETRON 4 MG/2 ML VIAL ONE (21:43)
[2021-01-16 22:09] LABS: VENOUS BASE EXCESS 3.9 mmol/L (-2-2); VENOUS O2 SATURATION 62.6 % (70-80); VENOUS PCO2 46.6 mmHg (38-52); VENOUS PH 7.416 (7.310-7.410)
[2021-01-16 22:13] LABS: BASO % 0.5 % (0-2.0); EOS % 0.1 % (0-4.5); HEMATOCRIT 40.8 % (35.4-49); HEMOGLOBIN 13.7 GM/dL (11.7-16.9); LYMPH % 7.8 % (8-40); MCH 27.6 pg (25.7-33.7); MCHC 33.5 g/dl (32.0-35.9); MEAN CELL VOLUME 82.5 fl (80-96); MEAN PLT VOLUME 8.4 fl (7.5-11.1); MONO % 6.1 % (3.8-10.2); NEUT % 85.5 % (42.8-82.8); PLATELET COUNT 229 10^3/uL (134-434); RBC 4.95 M/mm3 (4.00-5.60); RDW 14.7 % (11.9-15.9); WHITE BLOOD COUNT 9.3 K/mm3 (4.0-10.0)
[2021-01-16 22:36] LABS: CHLORIDE 99 mmol/L (98-107); SODIUM 137 mmol/L (136-145)
[2021-01-16 22:40] LABS: ALBUMIN 4.4 g/dl (3.4-5.0); ANION GAP 9 MMOL/L (8-16); CALCIUM 9.4 mg/dL (8.5-10.1); CO2 30 mmol/L (21-32)
[2021-01-16 22:41] LABS: BLOOD UREA NITROGEN 17.8 mg/dL (7-18); GLUCOSE,RANDOM 269 mg/dL (74-106); LIPASE 34 U/L (73-393); MAGNESIUM 2.1 mg/dL (1.8-2.4)
[2021-01-16 22:43] LABS: CREATININE 1.3 mg/dL (0.55-1.3); PHOSPHOROUS 2.5 mg/dL (2.5-4.9); SGOT/AST 22 U/L (15-37); SGPT/ALT 26 U/L (13-61)
[2021-01-16 22:45] LABS: BILIRUBIN,TOTAL 0.6 mg/dL (0.2-1); TOT PROT 7.6 g/dl (6.4-8.2)
[2021-01-16 22:46] LABS: ALK PHOS 79 U/L (45-117)
[2021-01-16] MEDS ORDERED: ACETAMINOPHEN 500 MG TABLET (FP) PO ONE (23:43)
[2021-01-17] MEDS ORDERED: ACETAMINOPHEN 325 MG TABLET (FP) ONE
[2021-01-17 01:41] VITALS: BP 143/78; PULSE 80; TEMP 98
== END 2021-01-17 01:46 | disposition home or self-care (01) ==
LOC: JER 20:02
PROC: 3E033GC Introduction of Other Therapeutic Substance into Peripheral Vein, Percutaneous Approach (ICD-10-PCS; principal; 2021-01-16)
DX: E10.65 Type 1 diabetes mellitus with hyperglycemia (principal); R11.2 Nausea with vomiting, unspecified
CPT/HCPCS: 36415; 71045-TC-FY; 80053; 82010; 82550; 82553; 82803; 82962; 83690; 83735; 84100; 84439; 84443; 84484; 85025; 93005; 93010; 96374; 99285-25